=== PATIENT | female | born 1950 | race Caucasian/White ===

== ENCOUNTER 2018-09-17 07:53 | Day surgery (SDC) | payer MEDICARE, OTHER, SELFPAY ==
--- NOTE | 2018-09-17 | PATH_ITS ---
[facility] Accession Number: [id number] . 01 Material submitted: . PART A: POLYP AT 35 PART B: MUCOSAL BIOPSY AT 25 CM . 02 Diagnosis: A. Polyp at 35 cm: Tubular adenoma. . B. Colon, 25 cm, Biopsy: Colonic mucosa with no diagnostic abnormality. Negative for active or microscopic colitis. Negative for granulomata, dysplasia or malignancy. MRV/09/21/2018 . 02 Electronically signed: . Leodan Ware MD, PhD, Pathologist NPI- [id number] . 01 Gross description: . Received two formalin-filled containers both labeled with the patient's name. . A. In a container labeled polyp at 35, the specimen consists of a 0.4 cm portion of tissue. Entirely submitted in cassette A. B. In a container labeled mucosal biopsy at 25 cm, source confirmed per client, the specimen consists of a 0.2 cm portion of tissue. Entirely submitted in cassette B. ([facility]:[id number]) /[facility] . 02 Pathologist provided ICD-10: D12.6, R19.4 . 02 CPT . 454251, 432605 Performed at: 01 [facility] [address], [place], [place] [id number] MD Robel Jordan MD Phone: [phone] Performed at: 02 [facility] [address] [place], [place] [id number] MD Divina Tolbert MD Phone: [phone]
[2018-09-17 08:53] VITALS: BP 121/80; PULSE 68; RESP 16; TEMP 36.6; O2SAT 96; BMI 34.1
--- NOTE | 2018-09-17 09:54 | PM.HP.1 ---
History of Present Illness Date Patient Seen: 09/17/18 Time Patient Seen: 09:55 Chief complaint: colonoscopy [id number] Narrative: Wonderful 68-year-old lady who is well known to me from prior visits. 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 This was removed with negative margins. Her last colonoscopy was 2 years ago and there was no evidence of regrowth. The tattoo was still visible. She presents today for another colonoscopy for surveillance. She denies any new problems or symptoms related to the function of her GI tract. Patient History Family & Social History Family History: Reviewed 09/17/18 by Rayne Domingo MD Social History: household members spouse Meds Home Medications Medication Instructions Recorded Confirmed Type levothyroxine 0.112 mg PO QDAY #0 07/03/16 09/17/18 History verapamil 240 mg PO QDAY #0 07/03/16 09/17/18 History oxybutynin chloride 10 mg PO DAILY 09/17/18 09/17/18 History propafenone 150 mg PO Q8H 09/17/18 09/17/18 History Allergies Allergy/AdvReac Type Severity Reaction Status Date / Time sulfamethoxazole Allergy Intermediate Rash Verified 09/17/18 09:01 [From Bactrim] trimethoprim [From Bactrim] Allergy Intermediate Rash Verified 09/17/18 09:01 Review of Systems Review of Systems All systems reviewed & are unremarkable except as noted in HPI and below Exam Vital Signs (past 8 hours): - 09/17/18 08:53 Temperature 97.9 F Pulse Rate 68 Respiratory Rate 16 Blood Pressure 121/80 Pulse Oximetry 96 Oxygen Delivery Method Room Air Narrative Exam Narrative: Wonderful well-nourished well-developed lady in no distress HEENT: Normocephalic and atraumatic, pupils equal round reactive to light accommodation with anicteric sclera Lungs: Clear auscultation bilaterally Heart: Regular rate and rhythm without murmur rub or gallop Abdomen: Soft, nontender, active bowel sounds Extremities: Warm and well perfused without edema Assessment & Plan Plan: Assessment/Plan Narrative: Wonderful 68-year-old lady with personal history of malignant colon polyp at 35 cm. We discussed the risks and benefits of colonoscopy today the patient expressed desire to completed today.
[2018-09-17] MEDS: MIDAZOLAM 5 MG/5 ML VIAL IV (10:02)
[2018-09-17] MEDS: fentaNYL 250 MCG/5 ML INJ IV (10:03)
--- NOTE | 2018-09-17 10:26 | PM.OP.1 ---
Operative Date/Time/Diagnoses Date of procedure: 09/17/18 Time of procedure: 10:26 Post-op diagnosis: same Procedure & Clinicians Procedure: Colonoscopy to the cecum with polypectomy and biopsy Same procedure as scheduled: Yes Indications: Last colonoscopy 2 years ago with a personal history of malignant colon polyp Surgeon: Rayne Domingo Click Yes if Unassisted: Yes Anesthesia Type: Sedation (Versed 8 mg; fentanyl 200 mcg) Operative Notes Findings: 1. Adequate prep 2. A tortuous colon is again noted 3. Tiny 2 mm polyp at 35 cm from the anal verge-removed with cold forceps and retained for pathology 4. Tattoo was noted and is now spread out from 25-30 cm. Mucosal biopsies were taken over the tattooed area. There was no evidence of any polyp regrowth a recurrence 5. Sigmoid diverticulosis Closure Type: not applicable Specimen(s): none sent (Polyp at 35 cm) Procedure in detail: After obtaining informed consent, the patient was brought to the GI suite and placed in the left lateral decubitus position on the examination table. After placement of appropriate monitors, the patient was given incremental doses of Versed and Fentanyl until an appropriate level of sedation was achieved. A time out was held per SCOAP protocol. A digital rectal examination was performed and did not reveal any masses or obstructing lesions. The colonoscope was gently passed into the patient's anus and the entire colon navigated to the level of the cecum with moderate difficulty due to colon tortuosity. External pressure was required to complete the journey. Once in the cecum, the scope was withdrawn being sure to go before and beyond all mucosal folds and prominences and get an excellent examination. The findings are noted above. At the level of the rectal vault, the scope was retroflexed and the internal anal canal was examined. The scope was straightened and air aspirated from the colon. The instrument was removed from the patient's body and the procedure was concluded. The patient was allowed to awaken from sedation without difficulty and taken to the post-anesthesia care unit in good condition. Total sedation time 33 min Total withdrawal time 14 min and 9 sec Complications: none Condition: stable Disposition: PACU Plan for aftercare: 1. Discharge to home 2. Plan for next colonoscopy in 2 years or as clinically indicated
[2018-09-17 10:27] VITALS: BP 114/74; PULSE 59; RESP 15; TEMP 36.9; O2SAT 96
[2018-09-17 10:32] VITALS: BP 111/66; PULSE 57; RESP 13; TEMP 36.9; O2SAT 96
--- NOTE | 2018-09-17 10:32 | SUR.PHASEI ---
IV fluids not noted in MAR - please see I&O for intraop fluids for total. NS hanging and report from OR nurse is that this is the first and only bag
[2018-09-17 10:37] VITALS: BP 106/63; PULSE 60; RESP 19; TEMP 37.2; O2SAT 97
[2018-09-17 10:41] VITALS: BP 114/66; PULSE 58; RESP 14; TEMP 36.9; O2SAT 97
[2018-09-17 10:51] VITALS: BP 119/67; PULSE 66; RESP 16; TEMP 36.7; O2SAT 99
--- NOTE | 2018-09-17 10:55 | SUR.PHASEII ---
Spouse brought in, VSS. d/c instructions discussed, both voiced an understanding. belly remains soft no nausea, eating crackers and drinking juice.
--- NOTE | 2018-09-17 11:17 | SUR.PHASEII ---
Pt dressed when ready and left when ready and in stable condition.
== END 2018-09-17 11:17 | disposition home or self-care (01) ==
PROVIDERS: PCP Physician Assistant; Visit Provider Surgery
PROC: 0DJD8ZZ Inspection of Lower Intestinal Tract, Via Natural or Artificial Opening Endoscopic (ICD-10-PCS; CPT 45378; principal; 2018-09-17 09:45)
DX: Z86.010 Personal history of colon polyps (principal); K57.30 Diverticulosis of large intestine without perforation or abscess without bleeding; D12.6 Benign neoplasm of colon, unspecified
CPT/HCPCS: 45380; 88305; 99152; 99153; J2250; J3010